=== PATIENT | female | born 1975 | race Caucasian/White ===

== ENCOUNTER → 2016-06-11 | Outpatient (CLI) | payer BC ==
[~2016-06-11] MED LIST: BIRTH CONTROL; CETI10TA17 PO; HYDR-3583 PO; OVRAL PO; SELE200C PO
[2016-06-11 17:53] LABS: THYROID STIMULATING HORMONE 0.56 UIU/ML (0.35-4.94)
== END ==
LOC: LAB 16:54
PROVIDERS: ATTEND Internal Medicine Endocrinology, Diabetes & Metabolism
DX: E04.2 Nontoxic multinodular goiter (principal)
CPT/HCPCS: 36415; 84439; 84443; 84480

== ENCOUNTER → 2016-08-11 | Outpatient (CLI) | payer BC ==
--- NOTE | 2016-08-11 12:18 | Diagnostic Imaging Report ---
PROCEDURE: US Thyroid. TECHNIQUE: Multiple real-time grayscale images were obtained of the thyroid in various projections. INDICATION: Followup multinodular goiter. COMPARISON: 08/17/2015 and 08/04/2013. DISCUSSION: The thyroid gland remains enlarged and heterogenous. The right thyroid measures 5.4 x 2.3 x 2.0 cm. The left thyroid measures 6.2 x 2.4 x 2.9 cm. There are multiple solid nodules noted diffusely throughout the bilateral thyroid gland. The largest on the left measures 4.2 x 1.9 x 2.6 cm, stable. No abnormal adjacent lymph nodes identified. No suspicious microcalcifications. IMPRESSION: 1. Multinodular goiter shows no adverse interval change. Recommend continued yearly sonographic surveillance. Dictated by: Dictated on workstation # [id number]
== END ==
LOC: RAD 11:12
PROVIDERS: ATTEND Internal Medicine Endocrinology, Diabetes & Metabolism
DX: E04.2 Nontoxic multinodular goiter (principal)
CPT/HCPCS: 76536

== ENCOUNTER → 2017-05-07 | Outpatient (CLI) | payer BC ==
[2017-05-07 17:25] LABS: FREE T4 (FREE THYROXINE) 1.07 NG/DL (0.70-1.48)
== END ==
LOC: LAB 16:30
PROVIDERS: ATTEND Internal Medicine Endocrinology, Diabetes & Metabolism
DX: E04.2 Nontoxic multinodular goiter (principal)
CPT/HCPCS: 36415; 84439; 84443; 84480

== ENCOUNTER → 2017-05-18 | Outpatient (CLI) | payer BC ==
--- NOTE | 2017-05-19 12:18 | Diagnostic Imaging Report ---
INDICATION: Routine screening. No prior mammograms are available for comparison. This is a baseline study. The current study was also evaluated with a Computer Aided Detection (CAD) system. FINDINGS: Both breasts are heterogeneously dense, limiting the sensitivity of mammography. No dominant mass or malignant appearing microcalcifications are seen. The axillae are unremarkable. IMPRESSION: No mammographic features suspicious for malignancy are identified. ACR BI-RADS Category 1: Negative. Result letter will be mailed to the patient. Note: At least 10% of breast cancer is not imaged by mammography. Dictated by: Dictated on workstation # [id number]
== END ==
LOC: RAD 15:21
PROVIDERS: ATTEND Obstetrics & Gynecology
DX: Z12.31 Encounter for screening mammogram for malignant neoplasm of breast (principal)
CPT/HCPCS: 77067

== ENCOUNTER → 2017-11-16 | Outpatient (CLI) | payer BC ==
--- NOTE | 2017-11-16 12:15 | Diagnostic Imaging Report ---
CLINICAL INDICATION: Patient with multinodular goiter. COMPARISONS: Ultrasound of the thyroid gland dated 08/11/2016. FINDINGS: THYROID NODULES: There is a 1.1 cm x 1.1 cm x 1.3 cm heterogeneous hypo-/iso-echoic nodule within the mid to upper portion of the right thyroid gland. There is a hypoechoic rim round this nodule. This nodule demonstrates minimal central Doppler flow. This nodule was not measured previously on the prior study. There is a 1.1 cm x 1.1 cm x 1.4 cm heterogeneous iso-/hypo-echoic nodule in the upper pole of the left thyroid gland. There is a hypoechoic rim around the nodule. There is mild central Doppler flow. This nodule appears grossly stable, given the differences in measuring technique. There is a 2.4 cm x 1.7 cm x 2.1 cm heterogeneous predominantly isoechoic and hypoechoic nodule within the inferior pole of the left thyroid gland. There appears to be a focal area of increased echogenicity with possible posterior shadowing which may represent calcification. This nodule was not specifically measured previously on the prior study. This nodule appears more defined on this exam than prior study. Prior study measured a 4.2 cm x 1.9 cm x 2.6 cm nodule involving the mid to inferior portion of the left thyroid gland, which includes the above described nodule and other areas of the gland. THYROID GLAND: Besides the thyroid nodules, the thyroid gland parenchyma is heterogeneous and mildly prominent. The right lobe measures 4.6 cm x 2.2 cm x 1.9 cm and the left lobe measures 5.5 cm x 2.5 cm x 2.7 cm in their three dimensions. ISTHMUS: The isthmus is unremarkable and measures 6 mm in thickness. IMPRESSION: 1: Multiple bilateral thyroid gland nodules with the largest measuring 2.4 cm involving the inferior pole of the left thyroid gland. 2: There appear to be slight increased cystic changes involving the largest 2.4 cm nodule. The nodule appears more defined on this exam than the prior study, and evaluation for significant interval change in size is difficult. 3: Given the differences in technique, stable upper pole left thyroid gland nodule. 4: The right thyroid gland nodule that was not measured on the prior study is more delineated on this exam. Dictated by: Dictated on workstation # [id number]
== END ==
LOC: RAD 07:43
PROVIDERS: ATTEND Internal Medicine Endocrinology, Diabetes & Metabolism
DX: E04.2 Nontoxic multinodular goiter (principal)
CPT/HCPCS: 76536

== ENCOUNTER → 2017-12-07 | Outpatient (CLI) | payer BC ==
[2017-12-07 20:05] LABS: BUN/CREATININE RATIO 13; CALCIUM 9.1 MG/DL (8.5-10.1); CARBON DIOXIDE 23 MMOL/L (21-32); CHLORIDE 103 MMOL/L (98-107); CREATININE SERUM 0.82 MG/DL (0.60-1.30); GFR ESTIMATED > 60; GLUCOSE 188 MG/DL (70-105); SODIUM 137 MMOL/L (135-145)
[2017-12-07 20:42] LABS: FREE T4 (FREE THYROXINE) 0.99 NG/DL (0.70-1.48)
== END ==
LOC: LAB 19:15
PROVIDERS: ATTEND Internal Medicine Endocrinology, Diabetes & Metabolism
DX: E04.2 Nontoxic multinodular goiter (principal)
CPT/HCPCS: 36415; 80048; 84439; 84443

== ENCOUNTER → 2017-12-30 | Outpatient (CLI) | payer BC ==
[2017-12-30 17:30] LABS: CALCIUM 9.5 MG/DL (8.5-10.1); CREATININE SERUM 1.2 MG/DL (0.60-1.30); POTASSIUM 4.2 MMOL/L (3.6-5.0)
== END ==
LOC: LAB 16:55
PROVIDERS: ATTEND Internal Medicine Endocrinology, Diabetes & Metabolism
DX: I10 Essential (primary) hypertension (principal)
CPT/HCPCS: 36415; 80048

== ENCOUNTER → 2018-06-07 | Outpatient (CLI) | payer BC ==
--- NOTE | 2018-06-07 12:47 | Diagnostic Imaging Report ---
INDICATION: Multinodular goiter TECHNIQUE: Multiple realtime grayscale images were obtained over the thyroid in various projections bilaterally. Comparison made with prior examination from 11/16/2017. FINDINGS: The right lobe of the thyroid measures 5.1 x 2.1 x 2.1 cm. There is an unchanged heterogeneous nodule in the mid right lobe measuring 1.3 x 1.2 cm. The left lobe of thyroid measures 5.7 x 2.7 x 3 cm. There is a persistent hypoechoic nodule in the superior aspect of left lobe of thyroid measure 1.4 x 1.2 cm. This is essentially unchanged. There is a heterogeneous isoechoic nodule in the inferior aspect of the left lobe measuring 2.5 x 2.3 cm compared previous measurement of 2.4 x 2.1 cm. There is also a smaller heterogeneous nodule along the medial aspect of the lower lobe near the isthmus measuring 1.1 x 1.2 cm. IMPRESSION: Essentially stable multinodular goiter when compared to prior examination from 2018. Dictated by: Dictated on workstation # [id number]
== END ==
LOC: RAD 10:22
PROVIDERS: ATTEND Internal Medicine Endocrinology, Diabetes & Metabolism
DX: E04.2 Nontoxic multinodular goiter (principal)
CPT/HCPCS: 76536

== ENCOUNTER → 2018-06-11 | Outpatient (CLI) | payer BC ==
[2018-06-11 13:35] LABS: BUN/CREATININE RATIO 12; CALCIUM 9.3 MG/DL (8.5-10.1); CARBON DIOXIDE 26 MMOL/L (21-32); CHLORIDE 104 MMOL/L (98-107); CREATININE SERUM 0.89 MG/DL (0.60-1.30); GFR ESTIMATED > 60; GLUCOSE 97 MG/DL (70-105); POTASSIUM 3.7 MMOL/L (3.6-5.0); SODIUM 141 MMOL/L (135-145)
[2018-06-11 13:58] LABS: FREE T4 (FREE THYROXINE) 1.04 NG/DL (0.70-1.48)
== END ==
LOC: LAB 12:54
PROVIDERS: ATTEND Internal Medicine Endocrinology, Diabetes & Metabolism
DX: I10 Essential (primary) hypertension (principal); E04.2 Nontoxic multinodular goiter; E06.3 Autoimmune thyroiditis
CPT/HCPCS: 36415; 80048; 84439; 84443; 84480

== ENCOUNTER → 2018-07-19 | Outpatient (CLI) | payer BC ==
--- NOTE | 2018-07-20 12:32 | Diagnostic Imaging Report ---
EXAMINATION: Digital mammogram INDICATION: Bilateral screening with 3-D tomosynthesis and CAD. This study was compared to the prior exams prior exam of 05/18/2017. At this time there are no current complaints. The current study was also evaluated with a Computer Aided Detection (CAD) system. FINDINGS: There is scattered fibroglandular tissue in both breasts which could obscure a lesion. Overall, there does not appear to have been any significant change when compared to the prior exam. No discrete mass or malignant-appearing microcalcifications are seen. The axillae are unremarkable. IMPRESSION: There are no mammographic features suspicious for malignancy. ACR BI-RADS Category 1: Negative. Result letter will be mailed to the patient. Note: At least 10% of breast cancer is not imaged on mammography. Dictated by: Dictated on workstation # [id number]
== END ==
LOC: RAD 14:56
PROVIDERS: ATTEND Obstetrics & Gynecology
DX: Z12.31 Encounter for screening mammogram for malignant neoplasm of breast (principal)
CPT/HCPCS: 77067

== ENCOUNTER → 2019-02-07 | Outpatient (CLI) | payer BC ==
[2019-02-07 15:55] LABS: FREE T4 (FREE THYROXINE) 0.94 NG/DL (0.70-1.48)
== END ==
LOC: LAB 14:51
PROVIDERS: ATTEND Internal Medicine Endocrinology, Diabetes & Metabolism
DX: E06.3 Autoimmune thyroiditis (principal)
CPT/HCPCS: 36415; 84439; 84443; 84480

== ENCOUNTER → 2019-02-13 | Outpatient (CLI) | payer BC ==
[2019-02-13 10:06] LABS: CHOLESTEROL 185 MG/DL (< 200); HDL CHOLESTEROL 45 MG/DL (40-60); TRIGLYCERIDES 81 MG/DL (<150); VLDL CHOLESTEROL 16 MG/DL (5-40)
== END ==
LOC: LAB 09:23
PROVIDERS: ATTEND Obstetrics & Gynecology
DX: E78.5 Hyperlipidemia, unspecified (principal)
CPT/HCPCS: 36415; 80061

== ENCOUNTER → 2019-08-02 | Outpatient (CLI) | payer BC ==
--- NOTE | 2019-08-03 09:58 | Diagnostic Imaging Report ---
INDICATION: Routine screening. Comparison is made with prior mammogram 07/19/2018 and 05/18/2017. 2-D and 3-D bilateral screening mammography was performed with CAD. Scattered fibroglandular densities are identified bilaterally. The parenchymal pattern is stable. No mass or malignant appearing microcalcifications are seen. Axillae are unremarkable. IMPRESSION: BI-RADS Category 1 No mammographic features suspicious for malignancy are identified. ACR BI-RADS Category 1: Negative. Result letter will be mailed to the patient. Note: At least 10% of breast cancer is not imaged by mammography. Dictated by: Dictated on workstation # [id number]
== END ==
LOC: RAD 13:21
PROVIDERS: ATTEND Obstetrics & Gynecology
DX: Z12.31 Encounter for screening mammogram for malignant neoplasm of breast (principal)
CPT/HCPCS: 77063; 77067

== ENCOUNTER → 2019-11-27 | Outpatient (CLI) | payer BC | LOC: LAB 16:46 | PROVIDERS: ATTEND Internal Medicine Endocrinology, Diabetes & Metabolism | DX: E06.3 Autoimmune thyroiditis (principal) | CPT/HCPCS: 36415; 84443 ==

== ENCOUNTER → 2020-03-09 | Outpatient (CLI) | payer BC ==
--- NOTE | 2020-03-09 16:31 | Diagnostic Imaging Report ---
EXAMINATION: US Thyroid. TECHNIQUE: Multiple real-time grayscale images were obtained of the thyroid in various projections. HISTORY: Multinodular goiter. COMPARISON: Thyroid ultrasound 06/07/2018. FINDINGS: The right lobe of the thyroid measures 5.8 x 2.4 x 1.9 cm. Heterogeneous echogenicity of the right lobe of the thyroid gland. Stable size and appearance of a 1.4 cm solid, hypoechoic, wider than tall nodule with smooth margins. The left lobe of the thyroid measures 6.1 x 2.7 x 2.8 cm. Heterogeneous echogenicity of the left lobe of thyroid gland. Stable size and appearance of a 1.4 cm mostly solid, isoechoic, wider than tall nodule with smooth margins. Slightly increased size of a 2.8 cm solid, isoechoic, wider than tall nodule with smooth margins. The isthmus is normal and measures 0.4 cm. No suspicious adenopathy within the visualized neck. IMPRESSION: 1. Slightly increased size of a 2.8 cm inferior left thyroid nodule compared to 06/07/2018. TI-RADS 3. Recommend fine-needle aspiration of this lesion given interval increased size. 2. Additional bilateral thyroid nodules are unchanged, TI-RADS 3. TIRADS 1: Benign No FNA or follow-up required TIRADS 2: Not Suspicious No FNA or follow-up required TIRADS 3: Mildly Suspicious FNA if ? 2.5 cm Follow if ? 1.5 cm (At 1, 3 and 5 years from initial scan) TIRADS 4: Moderately Suspicious FNA if ? 1.5 cm Follow if ? 1 cm (At 1, 2, 3 and 5 years from initial scan) TIRADS 5: Highly Suspicious FNA if ? 1 cm Follow if ? 0.5 cm (Annually for 5 years from initial scan) Dictated by: Dictated on workstation # [id number]
== END ==
LOC: RAD 14:56
PROVIDERS: ATTEND Internal Medicine Endocrinology, Diabetes & Metabolism
DX: E06.3 Autoimmune thyroiditis (principal); E04.2 Nontoxic multinodular goiter
CPT/HCPCS: 76536

== ENCOUNTER → 2020-03-16 | Outpatient (CLI) | payer BC ==
[~2020-03-16] VITALS: Ht 170.2 cm; Wt 68.2 kg
[~2020-03-16] MED LIST changes: +LIDOCAINE 1% INJ 20 ML 20 ML VIAL INJ ONE
--- NOTE | 2020-03-16 09:54 | Diagnostic Imaging Report ---
INDICATION: Multinodular thyroid. Patient presents for fine-needle aspiration biopsy of the dominant nodule in the lower pole left lobe of the thyroid using sonography guidance. Patient brought to the procedure room and placed in the supine position. Ultrasound imaging of the left neck was performed to evaluate appropriate entry site. Left neck was then prepped and draped in usual sterile fashion. A small amount of 1% lidocaine was utilized for local anesthesia. A total of 4 passes were made into the dominant nodule in the lower pole left lobe of thyroid utilizing 25-gauge needles and final aspiration technique. A single pass was made with a Rotex needle and a Rotex biopsy was performed. Hemostasis was obtained using manual compression. Patient tolerated the procedure well and left the department in stable condition. IMPRESSION: Successful ultrasound guided fine needle aspiration and Rotex biopsy of the dominant solid mass, lower pole left lobe of the thyroid. Pathology results are currently pending. Dictated by: Dictated on workstation # [id number]
== END ==
LOC: RAD 08:38
PROVIDERS: ATTEND Internal Medicine Endocrinology, Diabetes & Metabolism
DX: E04.2 Nontoxic multinodular goiter (principal)
CPT/HCPCS: 10005

== ENCOUNTER → 2020-08-09 | Outpatient (CLI) | payer BC ==
[~2020-08-09] MED LIST changes: -LIDOCAINE 1% INJ 20 ML 20 ML VIAL INJ ONE
[2020-08-09 17:22] LABS: ALBUMIN 4.1 GM/DL (3.2-4.5); CHLORIDE 107 MMOL/L (98-107); POTASSIUM 3.6 MMOL/L (3.6-5.0); SODIUM 140 MMOL/L (135-145)
[2020-08-09 17:23] LABS: CALCIUM 9.5 MG/DL (8.5-10.1)
[2020-08-09 17:24] LABS: GLUCOSE 122 MG/DL (70-105); TOTAL PROTEIN 7.5 GM/DL (6.4-8.2)
[2020-08-09 17:26] LABS: BILIRUBIN,TOTAL 0.3 MG/DL (0.1-1.0); CARBON DIOXIDE 23 MMOL/L (21-32)
[2020-08-09 17:28] LABS: ALKALINE PHOSPHATASE 61 U/L (40-136); CREATININE SERUM 0.86 MG/DL (0.60-1.30); GFR ESTIMATED > 60
[2020-08-09 17:29] LABS: BUN/CREATININE RATIO 14
[2020-08-09 17:31] LABS: ALANINE AMINOTRANSFERASE 14 U/L (0-55)
[2020-08-09 17:51] LABS: FREE T4 (FREE THYROXINE) 0.94 NG/DL (0.70-1.48)
== END ==
LOC: LAB 16:52
PROVIDERS: ATTEND Internal Medicine Endocrinology, Diabetes & Metabolism
DX: E06.3 Autoimmune thyroiditis (principal)
CPT/HCPCS: 36415; 80053; 84439; 84443; 84480

== ENCOUNTER → 2021-09-12 | Outpatient (CLI) | payer BC ==
--- NOTE | 2021-09-13 08:58 | Diagnostic Imaging Report ---
INDICATION: Routine screening. Comparison is made with prior mammogram from 08/02/2019 and 2018. 2-D and 3-D bilateral screening mammography was performed with CAD. CAD is utilized. The current study was also evaluated with a Computer Aided Detection (CAD) system. Scattered fibroglandular densities are identified bilaterally. The parenchymal pattern is stable. No mass or malignant-appearing microcalcifications are seen. Axillae are unremarkable. IMPRESSION: BI-RADS Category 1 No mammographic features suspicious for malignancy are identified. ACR BI-RADS Category 1: Negative. Result letter will be mailed to the patient. Note: At least 10% of breast cancer is not imaged by mammography. Dictated by: Dictated on workstation # [id number]
== END ==
LOC: RAD 15:00
PROVIDERS: ATTEND Obstetrics & Gynecology
DX: Z12.31 Encounter for screening mammogram for malignant neoplasm of breast (principal)
CPT/HCPCS: 77063; 77067

== ENCOUNTER → 2022-08-13 | Outpatient (CLI) | payer BC ==
--- NOTE | 2022-08-13 12:21 | Diagnostic Imaging Report ---
PROCEDURE: US Thyroid. TECHNIQUE: Multiple real-time grayscale images were obtained of the thyroid in various projections. INDICATION: Reji's thyroiditis. Follow-up. COMPARISON: 03/09/2020. FINDINGS: Both thyroid lobes demonstrate smooth and homogenous background echotexture. Color flow Doppler demonstrates normal and symmetric vascularity bilaterally. The right lobe measures 5.6 cm in length, 2.4 cm AP, and 2.3 cm transverse. The left lobe measures 6.2 cm in length, 3.0 cm AP, and 3.1 cm transverse. The isthmus measures 0.6 cm. A prominent solid echogenic nodules are seen in both lobes of the thyroid. The largest in the right measures 3.0 x 2.1 x 2.2 cm and the largest on the left measures 3.3 x 2.4 x 3.2 cm. IMPRESSION: 1. Multinodular goiter with interval increase in size in the dominant solid lesions in both lobes of the thyroid. The dominant mass in the left lobe of the thyroid previously underwent FNA/biopsy. The dominant nodule in the right lobe of the thyroid would qualify for FNA/biopsy based on size and imaging criteria. Recommend correlation with TSH levels and follow-up as indicated. Dictated by: Dictated on workstation # [id number]
== END ==
LOC: RAD 10:20
PROVIDERS: ATTEND Internal Medicine Endocrinology, Diabetes & Metabolism
DX: E06.3 Autoimmune thyroiditis (principal); E04.2 Nontoxic multinodular goiter
CPT/HCPCS: 76536

== ENCOUNTER → 2023-01-10 | Outpatient (CLI) | payer BC ==
--- NOTE | 2023-01-10 20:17 | Diagnostic Imaging Report ---
INDICATION: Pain. EXAMINATION: Right foot, 01/10/2023. FINDINGS: 3 views of the foot. Chronic findings noted with no acute fracture or dislocation. IMPRESSION: No acute process. Dictated by: Dictated on workstation # [id number]
== END ==
LOC: RAD 18:53
PROVIDERS: ATTEND Registered Nurse Community Health
DX: M79.671 Pain in right foot (principal)
CPT/HCPCS: 73630